=== PATIENT | female | born 1990 | race Caucasian/White ===

== ENCOUNTER 2020-09-27 01:13 | Emergency (ER) | payer OTHER ==
--- OUTSIDE RECORDS SUMMARY | 2020-09-27 01:16 | XMS REPORT | Continuity of Care Document ---
:1990 Author Organization [facility] t Address [address] [place] [address] Dr. Georges [address] [place] [id number] Care Team Providers Name Role Phone Unavailable Unavailable Unavailable Problems This patient has no known problems. Allergies, Adverse Reactions, Alerts This patient has no known allergies or adverse reactions. Medications This patient has no known medications. Procedures This patient has no known procedures. Results This patient has no known results.
[2020-09-27] MEDS ORDERED: HYDROCODONE/APAP 5/325 MG TAB ONE (02:42)
--- NOTE | 2020-09-27 04:18 | EDPHYS ---
Physician Documentation [facility] Name: Madeline Granda Age: 30 yrs Sex: Female : 1990 Arrival Date: 09/27/2020 Time: 01:18 Bed 27 Private MD: ED Physician Alvaro Kerns HPI: 09/27 02:22 This 30 yrs old Female presents to ER via Ambulatory with complaints of Ankle mh7 Injury. 02:22 The patient presents with an injury, pain, that is acute. The complaints affect the mh7 left ankle. Onset: The symptoms/episode began/occurred last night, at 19:30. Context: The problem was sustained Gym, resulted from an unknown cause, The mechanism of injury is unknown. The patient can partially bear weight on the affected extremity. the patient is able to ambulate, with moderate difficulty. Associated signs and symptoms: Pertinent negatives: calf tenderness, fever, nausea, numbness, rash, swelling, tingling, vomiting, warmth, weakness. Modifying factors: The symptoms are alleviated by nothing, the symptoms are aggravated by weight bearing, movement. Severity of symptoms: At their worst the symptoms were moderate, earlier today, in the emergency department the symptoms are unchanged, despite home interventions. 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 - Social history:: Smoking status: Patient reports the use of cigarette tobacco products, smokes one-half pack cigarettes per day, Patient uses alcohol, occasionally. ROS: 02:22 Constitutional: Negative for fever, chills, and weight loss, Eyes: Negative for injury, mh7 pain, redness, and discharge, ENT: Negative for injury, pain, and discharge, Neck: Negative for injury, pain, and swelling, Cardiovascular: Negative for chest pain, palpitations, and edema, Respiratory: Negative for shortness of breath, cough, wheezing, and pleuritic chest pain, Abdomen/GI: Negative for abdominal pain, nausea, vomiting, diarrhea, and constipation, Back: Negative for injury and pain, : Negative for injury, bleeding, discharge, and swelling, Skin: Negative for injury, rash, and discoloration, Neuro: Negative for headache, weakness, numbness, tingling, and seizure, Psych: Negative for depression, anxiety, suicide ideation, homicidal ideation, and hallucinations, Allergy/Immunology: Negative for hives, rash, and allergies, Endocrine: Negative for neck swelling, polydipsia, polyuria, polyphagia, and marked weight changes, Hematologic/Lymphatic: Negative for swollen nodes, abnormal bleeding, and unusual bruising. Exam: 02:22 Constitutional: This is a well developed, well nourished patient who is awake, alert, mh7 and in no acute distress. Head/Face: Normocephalic, atraumatic. Skin: Warm, dry with normal turgor. Normal color with no rashes, no lesions, and no evidence of cellulitis. 02:22 Neuro: Awake and alert, GCS 15, oriented to person, place, time, and situation. Cranial nerves II-XII grossly intact. Motor strength 5/5 in all extremities. Sensory grossly intact. Cerebellar exam normal. Normal gait. Psych: Awake, alert, with orientation to person, place and time. Behavior, mood, and affect are within normal limits. 02:22 Musculoskeletal/extremity: Extremities: noted in the left ankle, left foot: decreased ROM, pain, tenderness, ROM: limited active range of motion due to pain, in the left foot and ankle, limited passive range of motion due to pain, in the left foot and ankle, Circulation is intact in all extremities. Pulses: are normal with no appreciated deficits, Perfusion: the patient is normally perfused throughout, Perfusion: the extremity is normally perfused throughout, Calf tenderness, is absent, Edema, is not appreciated, Sensation intact. Compartment Syndrome exam of affected extremity: is normal. no numbness, no tingling, no sensation deficit, no palor, no weak pulses, Joints: the left ankle displays painful range of motion, tenderness, Weight bearing: can bear weight with assistance only, Tendon exam: specific tendon testing normal through active and passive range of motion Vital Signs: 01:49 BP 124 / 69; Pulse 102; Resp 16 S; Temp 98.2(O); Pulse Ox 96% on R/A; Weight 68.95 kg bb (R); Height 5 ft. 6 in. (167.64 cm) (R); Pain 10/10; 05:13 BP 119 / 72; Pulse 94; Resp 16; Pulse Ox 97% on R/A; jm8 01:49 Body Mass Index 24.53 (68.95 kg, 167.64 cm) bb MDM: 04:15 Differential diagnosis: fracture, sprain, arthritis. Data reviewed: vital signs, nurses [facility] notes, radiologic studies, plain films. Data interpreted: Pulse oximetry: on room air is 96 %. Interpretation: normal. Counseling: I had a detailed discussion with the patient and/or guardian regarding: the historical points, exam findings, and any diagnostic results supporting the discharge/admit diagnosis, radiology results, the need for outpatient follow up, a dermatological surgeon, to return to the emergency department if symptoms worsen or persist or if there are any questions or concerns that arise at home. Response to treatment: the patient's symptoms have markedly improved after treatment. 04:18 Patient medically screened. [facility] 09/27 02:22 Order name: Ankle Left 3 View XRAY [facility] 09/27 02:22 Order name: Foot Left 3 View XRAY [facility] 09/27 04:10 Order name: Crutches [facility] Administered Medications: 02:24 Drug: [place] (HYDROcodone-acetaminophen) 5 mg-325 mg 1 tabs Route: PO; jm8 Disposition: 09/27/20 04:18 Discharged to Home. Impression: Sprain, Left Ankle, Sprain, Left Foot. - Condition is Stable. - Discharge Instructions: Foot Sprain, Crutch Use, [id number], Ankle Sprain, Bcut-ej-Cxct. - Prescriptions for Ibuprofen 600 mg Oral Tablet - take 1 tablet by ORAL route every 8 hours As needed take with food; 15 tablet. Tramadol 50 mg Oral Tablet - take 1 tablet by ORAL route every 8 hours as needed; 12 tablet. - Medication Reconciliation Form, Thank You Letter, Antibiotic Education, Prescription Opioid Use, Work release form form. - Follow up: Private Physician; When: 1 - 2 days; Reason: Worsening of condition, Recheck today's complaints, Continuance of care, Re-evaluation by your physician. Follow up: Sukhjinder Hernandez MD; When: 1 - 2 days; Reason: Worsening of condition, Recheck today's complaints. Follow up: Jeffrey Burger DPM; When: 1 - 2 days; Reason: Worsening of condition, Recheck today's complaints. - Problem is new. - Symptoms have improved. Signatures: Dispatcher [employer] Jaki Rodas, RN RN Alvaro Kerns MD MD 7 Parker Castillo RN RN jm8 Corrections: (The following items were deleted from the chart) 05:03 04:18 09/27/2020 04:18 Discharged to Home. Impression: Sprain, Left Ankle; Sprain, Left jm8 Foot. Condition is Stable. Forms are Medication Reconciliation Form, Thank You Letter, Antibiotic Education, Prescription Opioid Use. Follow up: Private Physician; When: 1 - 2 days; Reason: Worsening of condition, Recheck today's complaints, Continuance of care, Re-evaluation by your physician. Follow up: Sukhjinder Hernandez; When: 1 - 2 days; Reason: Worsening of condition, Recheck today's complaints. Follow up: Jeffrey Burger; When: 1 - 2 days; Reason: Worsening of condition, Recheck today's complaints. Problem is new. Symptoms have improved. mh7
--- NOTE | 2020-09-27 04:18 | ER ---
Nurse's Notes [facility] Name: Madeline Granda Age: 30 yrs Sex: Female : 1990 Arrival Date: 09/27/2020 Time: 01:18 Bed 27 Private MD: Diagnosis: Sprain, Left Ankle;Sprain, Left Foot Presentation: 09/27 01:49 Chief complaint: Patient states: she worked out at the gym [place] and injured her left bb ankle which is now very painful. Coronavirus screen: At this time, the client does not indicate any symptoms associated with coronavirus-19. Ebola Screen: No symptoms or risks identified at this time. Initial Sepsis Screen: Does the patient meet any 2 criteria? No. Patient's initial sepsis screen is negative. Does the patient have a suspected source of infection? No. Patient's initial sepsis screen is negative. Risk Assessment: Do you want to hurt yourself or someone else? Patient reports no desire to harm self or others. Onset of symptoms was September 26, 2020. 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 - Social history:: Smoking status: Patient reports the use of cigarette tobacco products, smokes one-half pack cigarettes per day, Patient uses alcohol, occasionally. Screenin:22 Abuse screen: Denies threats or abuse. Denies injuries from another. Nutritional jm8 screening: No deficits noted. Tuberculosis screening: No symptoms or risk factors identified. Fall Risk None identified. Assessment: 02:26 General: Appears in no apparent distress. Behavior is calm, cooperative, appropriate jm8 for age. Pain: Complains of pain in left ankle Pain currently is 12 out of 10 on a pain scale. Quality of pain is described as sharp, Pain began 8 hours ago Alleviated by medications, Also complains of no other associated symptoms. Neuro: No deficits noted. Level of Consciousness is awake, alert, obeys commands, Oriented to person, place, time. Cardiovascular: No deficits noted. Respiratory: No deficits noted. Airway is patent Trachea midline Respiratory effort is even, unlabored. GI: No deficits noted. : No deficits noted. EENT: No deficits noted. Derm: No deficits noted. Musculoskeletal: Reports pain in right ankle since 5 pm. Pain is 12 out of 10 on a pain scale. Vital Signs: 01:49 BP 124 / 69; Pulse 102; Resp 16 S; Temp 98.2(O); Pulse Ox 96% on R/A; Weight 68.95 kg bb (R); Height 5 ft. 6 in. (167.64 cm) (R); Pain 10/10; 05:13 BP 119 / 72; Pulse 94; Resp 16; Pulse Ox 97% on R/A; jm8 01:49 Body Mass Index 24.53 (68.95 kg, 167.64 cm) ED Course: 01:18 Patient arrived in ED. es 01:52 Triage completed. bb 01:52 Arm band placed on Patient placed in an exam room, on a stretcher, on pulse oximetry. 01:57 Alvaro Kerns MD is Attending Physician. [facility] 02:22 Patient has correct armband on for positive identification. Bed in low position. Call 8 light in reach. Side rails up X 1. 02:28 No provider procedures requiring assistance completed. 8 03:17 Ankle Left 3 View XRAY In Process Unspecified. EDMS 03:18 Foot Left 3 View XRAY In Process Unspecified. EDMS 04:16 Sukhjinder Hernandez MD is Referral Physician. 7 04:16 Jeffrey Burger DPM is Referral Physician. 7 05:13 Patient did not have IV access during this emergency room visit. 8 Administered Medications: 02:24 Drug: [place] (HYDROcodone-acetaminophen) 5 mg-325 mg 1 tabs Route: PO; alf Outcome: 04:18 Discharge ordered by . [facility] 05:00 Discharged to home Ailyn 05:00 Condition: good Ailyn 05:00 Discharge instructions given to patient, Instructed on discharge instructions, follow up and referral plans. medication usage, crutch walking, Demonstrated understanding of instructions, follow-up care, medications, crutch walking. 05:03 Patient left the ED. alf Signatures: Dispatcher [employer] Cheri Zamora Brenda, DC RN bb Alvaro Kerns MD MD mh7 Parker Castillo RN RN jm8
[2020-09-27 05:09] VITALS: BP 124/69; TEMP 98.2; O2SAT 96
--- NOTE | 2020-09-27 08:47 | RAD REPORT ---
EXAM DESCRIPTION: RAD - Ankle Left 3 View - 09/27/2020 3:17 am CLINICAL HISTORY: trauma Pain and swelling COMPARISON: Foot Left 3 View dated 09/27/2020 FINDINGS: Soft tissue swelling is seen about the foot and ankle. There is no evidence acute fracture or dislocation. No aggressive marrow lesion.
--- NOTE | 2020-09-27 13:44 | RAD REPORT ---
EXAM DESCRIPTION: RAD - Foot Left 3 View - 09/27/2020 3:18 am CLINICAL HISTORY: Trauma Pain and swelling COMPARISON: Foot Left 3 View dated 09/27/2020 FINDINGS: Soft tissue swelling is seen about the foot and ankle. There is no evidence acute fracture or dislocation. No aggressive marrow lesion.
== END 2020-09-27 05:03 | disposition home or self-care (01) ==
LOC: ER 01:13
DX: S93.402A Sprain of unspecified ligament of left ankle, initial encounter (principal); S93.602A Unspecified sprain of left foot, initial encounter; F17.210 Nicotine dependence, cigarettes, uncomplicated; X58.XXXA Exposure to other specified factors, initial encounter
CPT/HCPCS: 99284

== ENCOUNTER 2022-01-16 12:53 | Emergency (ER) | payer OTHER ==
--- OUTSIDE RECORDS SUMMARY | 2022-01-16 12:56 | XMS REPORT | Continuity of Care Document ---
:[address] [facility] [place] [place] t Address [address] [place] [address] Care Team Providers Name Role Phone PCP, PATIENT DOES NOT HAVE A Primary Care Physician ANUPAM Parry Attending Clinician Unavailable Anupam Mckeon Attending Clinician Payers Payer Name Policy Type Policy Number Effective Date Expiration Date S mary jane CIG[employer] II [id number] 2020 00:00:00 Problems Condition Condition Condition Status Onset Resolution Last Treating Co mments Source Name Details Category Date Date Treatment Clinician Date No known No known Disease Unive rs active active ity of problems problems [facility] Allergies, Adverse Reactions, Alerts Allergy Allergy Status Severity Reaction(s) Onset Inactive Treating Comm ents Source Name Type Date Date Clinician NO KNOWN Drug Active Univers ALLERGIE Class ity of S [facility] Social History Social Habit Start Date Stop Date Quantity Comments Source History of tobacco Cigarette Smoker University of use [facility] History SDOH University o f Alcohol Comment [place] [facility] Exposure to Not sure University of SARS-CoV-2 (event) [facility] Alcohol intake 2021-05-12 2021-05-12 Current drinker Unive rsity of 00:00:00 00:00:00 of alcohol [facility] (finding) Branch Cigarettes smoked 2020-07-09 2020-07-09 Univers ity of current (pack per 00:00:00 00:00:00 [place] ) - Reported Branch Cigarette 2020-07-09 2020-07-09 University of pack-years 00:00:00 00:00:00 [facility] Tobacco use and 2020-07-09 2020-07-09 Never used Universit y of exposure 00:00:00 00:00:00 [place] [facility] History SDOH 2020-07-09 2020-07-09 3 University o f Alcohol Frequency 00:00:00 00:00:00 [place] [facility] History SDOH 2020-07-09 2020-07-09 2 University o f Alcohol Std Drinks 00:00:00 00:00:00 [place] [facility] History SDOH 2020-07-09 2020-07-09 99 University o f Alcohol Binge 00:00:00 00:00:00 [place] [facility] Sex Ass[birth year] At [birth year] Universit y of 00:00:00 00:00:00 [place] [facility] Smoking Status Start Date Stop Date Source Current every day smoker 2020-07-09 00:00:00 Uni [facility] Medications Ordered Filled Start Stop Current Ordering Indication Dosage Frequency Signature Comments Components Source Medication Medication Date Date Medication? Clinician (SIG) Name Name cephALEXin 2020-05- No [id number] 500mg Take 1 Univers (KEFLEX) 07-13 capsule by ity of 500 mg 00:00: 05:59 mouth 3 [place] capsule 00 :00 (three) Medical times Branch daily for 7 days. imiquimod 5 Yes [id number] 1{packe Apply 1 Univers % cream 2-10 t} Each to ity of 00:00: [facility](s) [place] [id number] every Medical Wednesday, Branch Wednesday and Wednesday. Vital Signs Vital Name Observation Time Observation Value Comments Source Systolic blood 2021-05-12 20:46:00 118 mm[Hg[facility] pressure Medical Branch Diastolic blood 2021-05-12 20:46:00 74 mm[Hg] [facility] Heart rate 2021-05-12 20:46:00 85 /min [facility] Body height 2021-05-12 20:46:00 167.6 cm [facility] Body weight 2021-05-12 20:46:00 72.122 kg [facility] BMI 2021-05-12 20:46:00 25.66 kg/m2 [facility] Oxygen saturation 2021-05-12 20:46:00 98 /min [facility] in Arterial blood Medical Br anch by Pulse oximetry Procedures Procedure Date / Time Performed Performing Clinician Sourc e POCT URINALYSIS 2021-05-12 00:00:00 [facility] o f [facility] Encounters Start End Encounter Admission Attending Care Care Encounter Source Date/Time Date/Time Type Type Clinicians Facility Department ID 2021-05-12 2021-05-12 [id number] Univers 15:00:00 15:32:14 ANUPAM itzainab [facility] 2021-05-12 2021-05-12 Office [facility] [id number] Univers 14:40:41 15:32:14 Visit [facility] [id number] y [facility] [id number] Luis as LEXIS?BLEA [id number] Tn dical [address] MEDICAL OFFICE BUILDING Results Test Description Test Time Test Comments Results Result Comments Source POCT URINALYSIS W SPECIFIC GRAVITY 2021-05-12 21:00:00 Test Item Value Reference Range Interpretation Comme nts POCT U SP GRAV (test code = 3255) 1.020 mg/dl 1.005-1.025 POCT PH U (test code = 3254) + 5-8 POCT U LEUK EST (test code = 3263) + Negative - Negative POCT U NIT (test code = 3262) neg Negative - Negative POCT U PROT (test code = 3259) neg Negative - Negative POCT U GLU (test code = 3256) neg Negative - Negative POCT U KETONE (test code = 3258) neg Negative - Negative POCT U UROBILI (test code = 3260) neg 0.2-1 POCT U BILI (test code = 3261) neg Negative - Negative POCT U BLD (test code = 3257) Negative - Negative POCT U COLOR (test code = 3266) yellow POCT U APPEAR (test code = 3267) hazy [facility]
[2022-01-16] MEDS ORDERED: ACETAMINOPHEN 500 MG TAB ONE (14:32)
--- NOTE | 2022-01-16 15:07 | RAD REPORT ---
EXAM DESCRIPTION: RAD - Elbow Right 3 View - 01/16/2022 2:16 pm CLINICAL HISTORY: Elbow pain FINDINGS: No fracture or dislocation is seen. No bone or joint abnormality is displayed
--- NOTE | 2022-01-16 15:08 | RAD REPORT ---
EXAM DESCRIPTION: RAD - Hand Right 3 View - 01/16/2022 2:16 pm CLINICAL HISTORY: Right hand pain status post injury FINDINGS: No fracture or dislocation is seen.
--- NOTE | 2022-01-16 15:10 | RAD REPORT ---
EXAM DESCRIPTION: RAD - Forearm Right - 01/16/2022 2:16 pm CLINICAL HISTORY: Right arm pain FINDINGS: No fracture is seen.
--- NOTE | 2022-01-16 15:48 | EDPHYS ---
Physician Documentation [facility] Name: Madeline Granda Age: 31 yrs Sex: Female : 1990 Arrival Date: 01/16/2022 Time: 12:54 Bed 11 Private MD: ED Physician Ra Guillermo HPI: 01/16 14:00 This 31 yrs old Female presents to ER via Ambulatory with complaints of Wrist Injury. cp 14:00 The patient or guardian complains of injury, pain, that is acute, swelling, tenderness. cp The complaints affect the right antecubital area, right hand and right forearm. Context: resulted from punching wall yesterday. 14:00 Onset: The symptoms/episode began/occurred yesterday. Treatment prior to arrival cp includes: no previous treatment. Modifying factors: the symptoms are aggravated by movement. Associated signs and symptoms: The patient has no apparent associated signs or symptoms. 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 - Social history:: Patient/guardian denies using tobacco products, Smoking status: Patient/guardian denies using. ROS: 14:05 MS/extremity: Positive for pain, swelling, tenderness, of the right hand and right cp wrist and right forearm and right elbow, dorsal side abrasions of right hand. 14:05 Constitutional: Negative for body aches, chills, fever, poor PO intake. cp 14:05 Neck: Negative for pain with movement, pain at rest, stiffness. cp 14:05 Cardiovascular: Negative for chest pain, edema, palpitations. 14:05 Respiratory: Negative for cough, shortness of breath, wheezing. 14:05 Abdomen/GI: Negative for abdominal pain, nausea, vomiting, and diarrhea. 14:05 Back: Negative for pain at rest, pain with movement. 14:05 Neuro: Negative for altered mental status, headache, numbness, tingling, weakness. 14:05 All other systems are negative. Exam: 14:10 Constitutional: The patient appears in no acute distress, alert, awake, non-toxic, well cp developed, well nourished. 14:10 Head/Face: Normocephalic, atraumatic. cp 14:10 Neck: ROM/movement: is normal, is supple, without pain, no range of motions limitations. 14:10 Chest/axilla: Inspection: normal. 14:10 Cardiovascular: Rate: normal, Pulses: Pulses are 2+ in right radial artery. 14:10 Respiratory: the patient does not display signs of respiratory distress, Respirations: normal, no use of accessory muscles, no retractions, labored breathing, is not present. 14:10 Musculoskeletal/extremity: Extremities: grossly normal except: noted in the right forearm and right hand and right elbow: pain, tenderness, mild swelling noted dorsal side of right hand, ROM: full active range of motion, in the right hand and right wrist and right elbow, the right arm Sensation intact. Vital Signs: 13:30 BP 130 / 81; Pulse 63; Resp 16; Temp 98.0(TE); Pulse Ox 100% on R/A; Weight 73.94 kg bm7 (R); Height 5 ft. 6 in. (167.64 cm); Pain 10/10; 16:00 BP 131 / 78; Pulse 68; Resp 18; Pulse Ox 99% ; Pain 5/10; kb3 13:30 Body Mass Index 26.31 (73.94 kg, 167.64 cm) bm7 Procedures: 16:00 Splinting: Splint applied to right hand and right forearm and right elbow using cp Orthoglass splint, applied by tech. Examined by me, post splint application: neurovascular intact, Patient tolerated well. MDM: 15:17 Patient medically screened. pati 15:47 Data reviewed: vital signs, nurses notes, radiologic studies, plain films. cp 15:47 Differential diagnosis: dislocation, closed fracture, contusion, abrasion. Test cp interpretation: by ED physician or midlevel provider: plain radiologic studies. Counseling: I had a detailed discussion with the patient and/or guardian regarding: the historical points, exam findings, and any diagnostic results supporting the discharge/admit diagnosis, radiology results, the need for outpatient follow up, a orthopedic surgeon, to return to the emergency department if symptoms worsen or persist or if there are any questions or concerns that arise at home. Response to treatment: the patient's symptoms have markedly improved after treatment, and as a result, I will discharge patient. 01/16 13:40 Order name: XRAY Hand RIGHT 3 View; Complete Time: 15:17 cp 01/16 15:17 Interpretation: Report reviewed. cp 01/16 13:40 Order name: XRAY Forearm RIGHT; Complete Time: 15:17 cp 01/16 15:21 Interpretation: Reviewed. cp 01/16 13:40 Order name: XRAY Elbow RIGHT 3 view; Complete Time: 15:17 cp 01/16 15:21 Interpretation: Report reviewed. cp 01/16 15:24 Order name: Sling; Complete Time: 15:42 cp 01/16 15:24 Order name: Sugar Tong Forearm Splint; Complete Time: 15:42 cp Administered Medications: 14:24 Drug: Tylenol 1000 mg Route: PO; bm7 16:12 Follow up: Response: No adverse reaction; Pain is decreased kb3 Disposition Summary: 01/16/22 15:47 Discharge Ordered Location: Home cp Problem: new cp Symptoms: have improved cp Condition: Stable cp Diagnosis - Contusion of right hand cp - Pain in right forearm cp - Pain in right elbow cp Followup: cp - With: Sukhjinder Hernandez MD - When: 2 - 3 days - Reason: Worsening of condition Discharge Instructions: - Discharge Summary Sheet cp - Hand Contusion cp - Hand Pain cp - Elbow Sprain cp Forms: - Medication Reconciliation Form cp - Thank You Letter cp - Antibiotic Education cp - Prescription Opioid Use cp Prescriptions: - Diclofenac Sodium 75 mg Oral Tablet Sustained Release - take 1 tablet by ORAL route 2 times per day; 30 tablet; Refills: 0, Product cp Selection Permitted Signatures: Dispatcher [employer] Ra Álvarez MD MD cha Page, Corey, PA PA cp Yadira Teran, RN RN bm7 Yuli Wallace RN kb3
--- NOTE | 2022-01-16 15:48 | ER ---
Nurse's Notes [facility] Name: Madeline Granda Age: 31 yrs Sex: Female : 1990 Arrival Date: 01/16/2022 Time: 12:54 Bed 11 Private MD: Diagnosis: Contusion of right hand;Pain in right forearm;Pain in right elbow Presentation: 01/16 13:34 Chief complaint: Patient states: I punched a wall two days ago and I am pretty sure i bm7 broke my right hand. Coronavirus screen: At this time, the client does not indicate any symptoms associated with coronavirus-19. Ebola Screen: No symptoms or risks identified at this time. Initial Sepsis Screen: Does the patient meet any 2 criteria? No. Patient's initial sepsis screen is negative. Does the patient have a suspected source of infection? No. Patient's initial sepsis screen is negative. Risk Assessment: Do you want to hurt yourself or someone else? Patient reports no desire to harm self or others. Onset of symptoms was January 14, 2022. 13:34 Method Of Arrival: Ambulatory 7 13:34 Acuity: JONG 4 bm7 Triage Assessment: 13:35 General: Appears in no apparent distress. uncomfortable, Behavior is calm, cooperative, bm7 appropriate for age. Pain: Complains of pain in right hand. EENT: No deficits noted. No signs and/or symptoms were reported regarding the EENT system. Neuro: No deficits noted. Cardiovascular: No deficits noted. Reports. Respiratory: No deficits noted. GI: No deficits noted. No signs and/or symptoms were reported involving the gastrointestinal system. : No deficits noted. No signs and/or symptoms were reported regarding the genitourinary system. Derm: Skin is intact, Skin is pink, warm \T\ dry. Bruising that is yellow, on right hand. Musculoskeletal: Reports weakness in right hand pain in right hand. Injury Description: Bruise sustained to right hand. 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 - Social history:: Patient/guardian denies using tobacco products, Smoking status: Patient/guardian denies using. Screenin:08 Abuse screen: Denies threats or abuse. Nutritional screening: No deficits noted. bm7 Tuberculosis screening: No symptoms or risk factors identified. Fall Risk None identified. Assessment: 15:08 Reassessment: Patient and/or family updated on plan of care and expected duration. Pain bm7 level reassessed. Patient is alert, oriented x 3, equal unlabored respirations, skin warm/dry/pink. 15:17 General: Received care of pt from [facility] without distress. Pt is AAO x4. kb3 States right hand and wrist pain after punching a wall 2 days ago. Dorsal aspect of right hand is bruised with 2 small healing abrasions. Sensation and movement are intact in all fingers. Pt states no needs at this time. Awaiting provider for disposition. Vital Signs: 13:30 BP 130 / 81; Pulse 63; Resp 16; Temp 98.0(TE); Pulse Ox 100% on R/A; Weight 73.94 kg bm7 (R); Height 5 ft. 6 in. (167.64 cm); Pain 10/10; 16:00 BP 131 / 78; Pulse 68; Resp 18; Pulse Ox 99% ; Pain 5/10; kb3 13:30 Body Mass Index 26.31 (73.94 kg, 167.64 cm) bm7 ED Course: 12:54 Patient arrived in ED. as 13:13 Ra Bonilla PA is PHCP. cp 13:13 Ra Guillermo MD is Attending Physician. cp 13:35 Triage completed. bm7 13:35 Arm band placed on. bm7 14:18 XRAY Hand RIGHT 3 View In Process Unspecified. EDMS 14:18 XRAY Forearm RIGHT In Process Unspecified. EDMS 14:18 XRAY Elbow RIGHT 3 view In Process Unspecified. EDMS 15:08 No apparent distress. Resting quietly. bm7 15:08 Patient has correct armband on for positive identification. bm7 15:17 Yuli Wallace, RN is Primary Nurse. kb3 15:42 Orthoglass splint: Sugar tong splint applied on right arm. Sling applied to right arm. em1 15:45 Sukhjinder Hernandez MD is Referral Physician. cp 16:12 No provider procedures requiring assistance completed. Patient did not have IV access kb3 during this emergency room visit. Administered Medications: 14:24 Drug: Tylenol 1000 mg Route: PO; bm7 16:12 Follow up: Response: No adverse reaction; Pain is decreased kb3 Medication: 15:08 VIS not applicable for this client. bm7 Outcome: 15:47 Discharge ordered by . cp 16:12 Discharged to home ambulatory. kb3 16:12 Condition: stable 16:12 Discharge instructions given to patient, Instructed on discharge instructions, follow up and referral plans. medication usage, Care of splint Demonstrated understanding of instructions, follow-up care, medications, splint care, Prescriptions given X 1. 16:14 Patient left the ED. kb3 Signatures: Dispatcher [employer] EDMS Paula Rangel Eric em1 Ra Bonilla PA PA cp McCarthy, Brittany, RN RN bm7 Yuli Wallace RN RN kb3 Corrections: (The following items were deleted from the chart) 13:34 13:30 Pulse 163bpm; Resp 16bpm; Pulse Ox 100% RA; Temp 98.0F Temporal; 73.94 kg bm7 Reported; Height 5 ft. 6 in.; BMI: 26.3; Pain 10/10; bm7
[2022-01-16 16:18] VITALS: TEMP 98
[2022-01-16 16:21] VITALS: BP 131/78; O2SAT 99
== END 2022-01-16 16:14 | disposition home or self-care (01) ==
LOC: ER 12:53
PROC: 2W3CX1Z Immobilization of Right Lower Arm using Splint (ICD-10-PCS; principal; 2022-01-16)
DX: S60.221A Contusion of right hand, initial encounter (principal); M79.631 Pain in right forearm; M25.521 Pain in right elbow
CPT/HCPCS: 99284

== ENCOUNTER 2023-11-12 22:56 | Emergency (ER) | payer OTHER ==
--- OUTSIDE RECORDS SUMMARY | 2023-11-12 22:59 | XMS REPORT | Continuity of Care Document ---
Author Name Unknown Address [address] [facility] [address] [place] [address] [facility] Address [address] [facility] [place] [address] Care Team Providers Care First Beater Name Role Phone PCP, PATIENT DOES NOT HAVE A Primary Care Physic betty Unavailable MILAD RICH Attending Clinician Unavailable Milad Rich MD Attending Clinician ENEDINA BARRIGA Attending Clinician ENEDINA Vyas Attending Clinician NANDA Parry Attending Clinician Unavailable Nanda Mckeon Attending Clinician MILAD RICH Admitting Clinician Unavailable Payers Payer Name Policy Type Policy Number Effective Date Expirati on Date Source GAL AZUL [id number] 2021 00:00:00 Problems Condition Name Condition Details Condition Category Status Onset Date Resolution Date Last Treatment Date Treating Clinician Comments Source No known active problems No known active problems Disease [facility] Allergies, Adverse Reactions, Alerts Allergy Name Allergy Type Status Severity Reaction(s) Onset Date Inactive Date Treating Clinician Comments Source NO KNOWN ALLERGIE S Drug Class Active [facility] Social History Social Habit Start Date Stop Date Quantity Comments Source History of tobacco use Cigarette Smoker [facility] History SDOH Alcohol Comment [facility]a o f [facility] Alcohol intake 2022-04-27 00:00:00 2022-04-27 00:00:00 Current drinker of alcohol (finding) [facility] Cigarettes smoked current (pack per day) - Reported 2022-04-22 00:00:00 2022-04-22 00:00:00 [facility] Cigarette pack-years 2022-04-22 00:00:00 2022-04-22 00:00:00 [facility] Tobacco use and exposure 2022-04-22 00:00:00 2022-04-22 00:00:00 Smokeless tobacco non-user [facility] Exposure to SARS-CoV-2 (event) 2022-04-05 00:00:00 2022-04-15 06:55:00 Not sure [facility] History SDOH Alcohol Frequency 2020-07-09 00:00:00 2020-07-09 00:00:00 3 [facility] History SDOH Alcohol Std Drinks 2020-07-09 00:00:00 2020-07-09 00:00:00 2 [facility] History SDOH Alcohol Binge 2020-07-09 00:00:00 2020-07-09 00:00:00 99 [facility] Sex Assigned At 1990 00:00:00 1990 00:00:00 [facility] Smoking Status Start Date Stop Date Source Smokes tobacco daily 2022-04-22 00:00:00 [facility] Medications Ordered Medication Name Filled Medication Name Start Date Stop Date Current Medication? Ordering Clinician Indication Dosage Frequency Signature (SIG) Comments Components Source ketorolac (TORADOL) injection 30 mg 12-02 11:00: 00 12-02 10:22 :00 No 30mg 30 mg, Slow IV Push, ONCE, 1 dose, On Wed12/02/22 at 0600, JULISA [facility] iopamidol (ISOVUE 370-500 mL) injection 100 mL 12-02 10:30: 00 12-02 10:30 :00 No [id number] 100mL 100 mL, Intravenou s, ONCE, 1 dose, On Wed12/02/22 at 0530, Routine [facility] NaCl 0.9% (NS) bolus infusion 1,000 mL 12-02 09:45: 00 12-02 11:08 :00 No 1000mL at 150 mL/hr, 1,000 mL, IV Infusion, ONCE, 1 dose, On Wed12/02/22 at 0445, STAT [facility] ibuprofen 600 mg tablet - 00:00: 00 Yes [id number] 600mg Take 1 tablet by mouth every 8 (eight) hours as needed for Pain (scale 4-6). [facility] ketorolac (TORADOL) injection 30 mg 2021-05 14:30: 00 04-15 13:43 :00 No 30mg 30 mg, Slow IV Push, ONCE, 1 dose, On Wed04/15/22 at 0830, JULISA [facility] iopamidol (ISOVUE 370-500 mL) injection 80 mL 2021-05 14:22: 00 04-15 14:30 :00 No [id number] 80mL 80 mL, Intravenou s, ONCE, 1 dose, On Wed04/15/22 at 0830, Routine [facility] famotidine (PEPCID (PF)) injection 20 mg 2021-05 13:30: 00 04-15 13:26 :00 No 20mg 20 mg, Slow IV Push, ONCE, 1 dose, On Wed04/15/22 at 0730, JULISA [facility] naproxen 500 mg tablet 2021-05 00:00: 00 04-23 05:59 :00 No [id number] 500mg Take 1 tablet by mouth in the morning and 1 tablet in the evening. Take with meals. Do all this for 7 days. [facility] acetaminoph en-codeine 300-30 mg tablet 2021-05 00:00: 00 04-23 05:59 :00 No [id number] 1{tbl} Take 1 tablet by mouth every 6 (six) hours as needed for Pain (scale 7-10) for up to 7 days. Indication s: acute pain [facility] cephALEXin (KEFLEX) 500 mg capsule 2020-05- 00:00: 00 05-20 05:59 :00 No [id number] 500mg Take 1 capsule by mouth 3 (three) times daily for 7 days. [facility] imiquimod 5 % cream 2- 00:00: 00 Yes [id number] 1{packe t} Apply 1 Each to area(s) every Wednesday, Wednesday and Wednesday. [facility] Vital Signs Vital Name Observation Time Observation Value Carola hinton Systolic blood pressure 2022-12-02 11:01:00 115 mm[Hg] [facility] Diastolic blood pressure 2022-12-02 11:01:00 78 mm[Hg] [facility] Heart rate 2022-12-02 11:01:00 93 /min [facility] Body temperature 2022-12-02 11:01:00 36.78 Telma [facility] Respiratory rate 2022-12-02 11:01:00 22 /min [facility] Oxygen saturation in Arterial blood by Pulse oximetry 2022-12-02 11:01:00 99 /min [facility] Body height 2022-12-02 09:15:36 167.6 cm [facility] Body weight 2022-12-02 09:15:36 68.04 kg [facility] BMI 2022-12-02 09:15:36 24.21 kg/m2 [facility] Systolic blood pressure 2022-04-22 17:09:00 131 mm[Hg] [facility] Diastolic blood pressure 2022-04-22 17:09:00 85 mm[Hg] [facility] Heart rate 2022-04-22 17:07:00 75 /min [facility] Body temperature 2022-04-22 17:07:00 36.83 Telma [facility] Respiratory rate 2022-04-22 17:07:00 18 /min [facility] Body height 2022-04-22 17:07:00 167.6 cm [facility] Body weight 2022-04-22 17:07:00 76.204 kg [facility] BMI 2022-04-22 17:07:00 27.12 kg/m2 [facility] Systolic blood pressure 2022-04-15 13:01:00 129 mm[Hg] [facility] Diastolic blood pressure 2022-04-15 13:01:00 86 mm[Hg] [facility] Heart rate 2022-04-15 13:01:00 100 /min [facility] Body temperature 2022-04-15 13:01:00 35.94 Telma [facility] Respiratory rate 2022-04-15 13:01:00 18 /min [facility] Body weight 2022-04-15 13:01:00 72.122 kg [facility] BMI 2022-04-15 13:01:00 25.66 kg/m2 [facility] Oxygen saturation in Arterial blood by Pulse oximetry 2022-04-15 13:01:00 99 /min [facility] Systolic blood pressure 2021-05-12 20:46:00 118 mm[Hg] [facility] Diastolic blood pressure 2021-05-12 20:46:00 74 mm[Hg] [facility] Heart rate 2021-05-12 20:46:00 85 /min [facility] Body height 2021-05-12 20:46:00 167.6 cm [facility] Body weight 2021-05-12 20:46:00 72.122 kg [facility] BMI 2021-05-12 20:46:00 25.66 kg/m2 [facility] Oxygen saturation in Arterial blood by Pulse oximetry 2021-05-12 20:46:00 98 /min [facility] Procedures Procedure Date / Time Performed Performing Clinician Source URINALYSIS 2022-12-02 10:26:00 [facility]ad [facility] TRAUMA THORAX W CONTRAST 2022-12-02 09:35:47 Milad Rich [facility] CT TRAUMA ABDOMEN PELVIS W CONTRAST 2022-12-02 09:35:47 Milad Rich [facility] CT TRAUMA CERVICAL SPINE WO CONTRAST 2022-12-02 09:35:24 Milad Rich [facility] CT TRAUMA THORACIC SPINE WO CONTRAST 2022-12-02 09:35:24 Milad Rich [facility] CT TRAUMA LUMBAR SPINE WO CONTRAST 2022-12-02 09:35:24 Milad Rich [facility] LIPASE 2022-12-02 09:18:00 Milad [facility] TEST, SERUM 2022-12-02 09:18:00 Milad Rich [facility] COMP. METABOLIC PANEL ([id number]) 2022-12-02 09:18:00 Milad Rich [facility] CBC WITH DIFF 2022-12-02 [facility]22-12-02 09:18:00 Alisa Rich [facility] ACTIVATED PARTIAL THRMPLAS GAETANO 2022-12-02 09:18:00 Milad Rich [facility] HB ABO GROUPING 2022-12-02 09:18:00 Milad Rich [facility] EKG-12 LEAD 2022-04-15 16:20:37 Milad Rich [facility] TROPONIN I 2022-04-15 15:44:00 Milad [facility] CT CHEST PULMONARY ANGIOGRAM 2022-04-15 14:24:00 Milad Rich [facility] URINALYSIS 2022-04-15 13:20:00 Milad Rich [facility] XR CHEST 1 VW 2022-04-15 13:19:41 Milad Rich [facility] LIPASE 2022-04-15 13:12:00 Milad Rich [facility] TROPONIN I 2022-04-15 13:12:00 Milad [facility] COMP. METABOLIC PANEL ([id number]) 2022-04-15 13:12:00 Milad Rich [facility] CBC WITH DIFF 2022-04-15 13:12:00 Milad Rich [facility] PROTHROMBIN TIME / INR 2022-04-15 13:12:00 Alisa Rich [facility] D-DIMER 2022-04-15 13:12:00 Milad [facility] ACTIVATED PARTIAL THRMPLAS GAETANO 2022-04-15 13:12:00 Milad Rich [facility] POCT TEST 2022-04-15 13:12:00 Milad Rich [facility] CONSENT/REFUSAL FOR DIAGNOSIS AND TREATMENT 2022-04-15 12:58:00 Doctor Unassigned, [place] [facility] POCT URINALYSIS 2021-05-12 00:00:00 Nanda Brizuela [facility] Encounters Start Date/Time End Date/Time Encounter Type Admission Type Attending [facility] Care Department Encounter ID Source 2023-03-22 08:49:00 2023-03-22 08:49:00 Outpatient SFA SFA [id number] Gopal Rodriguez Raoul 2022-12-02 04:14:00 2022-12-02 06:11:[address] [facility] ERT [id number] [facility] 2022-12-02 04:14:00 2022-12-02 06:11:00 Emergency Milad Rich [facility] [id number] [id number] [id number] [facility] 2022-04-22 11:15:00 2022-04-22 11:15:00 Office Visit Enedina Barriga [facility] [id number] [id number] [id number] [facility] 2022-04-22 11:15:00 2022-04-22 11:14:45 Outpatient R ENEDINA BARRIGA [facility] [id number] [facility] 2022-04-15 07:05:00 2022-04-15 10:36:[address] [facility] ERT [id number] [facility] 2022-04-15 07:05:00 2022-04-15 10:36:00 Emergency Milad Rich [facility] [id number] [id number] [id number] [id number] [facility] 2022-04-15 00:00:00 2022-04-15 00:00:00 Telephone Enedina Barriga [facility] [id number] [id number] [id number] [id number] [facility] 2021-05-12 15:00:00 2021-05-12 15:32:14 Outpatient R [facility] [id number] [facility] 2021-05-12 14:40:41 2021-05-12 15:32:14 [facility] [id number] [id number] [id number] [id number] [facility] Results Test Description Test Time Test Comments Results Result Co mments Source [facility] [id number] 13:52:23* Test Item Value Reference Range Interpretation Comments TROPONIN I (test code = 2692090068) 0.006 ng/mL See_Comment [Automated message] The system which generated this result transmitted reference range: <=0.034. The reference range was not used to interpret this result as normal/abnormal. VAL (test code = VAL) Reference (Normal) Range (defined by the 99th percentile reference limit): <= 0.034 ng/mL Note: Cardiac troponin begins to rise 3-4 hours after the onset of ischemia. Repeat in 4-6 hours if the sample was drawn within 3-4 hours of the onset of the symptom and found normal. Diagnosis of myocardial injury is made with acute changes in cTn concentrations with at least one serial sample above the 99th percentile upper reference limit (URL), taken together with the patient's clinical presentation. Biotin has been reported to cause a negative bias, interpret results relative to patient's use of biotin. Lab Interpretation (test code = 87100-6) Normal [facility][id number] 13:44:03* Test Item Value Reference Range Interpretation Comments D-DIMER (test code = 0655705633) See_Comment [Automated message] The system which generated this result transmitted reference range: <0.41 ?g/mL (FEU). The reference range was not used to interpret this result as normal/abnormal. VAL (test code = VAL) This test may be used in conjunction with a clinical pretest probability (PTP) assessment model to exclude venous thromboembolism (VTE) in patients suspected of deep venous thrombosis (DVT) and pulmonary embolism (PE) A D-Dimer value less than 0.50 ?g/ml (FEU) has a negative predicative value of 96 to 100% (95% CI)and 97 to 100% (95% CI) as an aid in the diagnosis of deep vein thrombosis (DVT) and pulmonary embolism when there is low or moderate pretest probability of PE or DVT. D-Dimer values are expressed in initial fibrinogen equivalent units (FEU)" The assay results should be used with other information, including the clinical context, in forming a diagnosis. Lab Interpretation (test code = 56684-1) Normal [facility] ([id number])2022-04-15 13:41:22* Test Item Value Reference Range Interpretation Comme nts NA (test code = 9293266281) 142 mmol/L 135-145 K (test code = 7373634444) 4.5 mmol/L 3.5-5.0 CL (test code = 1566141222) 109 mmol/L 98-108 H CO2 TOTAL (test code = 4769535987) 23 mmol/L 23-31 AGAP (test code = 3134716386) 2-16 BUN (test code = 7398181456) 8 mg/dL 7-23 GLUCOSE (test code = 5620407226) 96 mg/dL 70-110 CREATININE (test code = 6064675364) 0.69 mg/dL 0.50-1.04 TOTAL BILI (test code = 5722133726) 0.6 mg/dL 0.1-1.1 CALCIUM (test code = 7601571802) 8.9 mg/dL 8.6-10.6 T PROTEIN (test code = 1521705540) 8.1 g/dL 6.3-8.2 ALBUMIN (test code = 8767988193) 4.7 g/dL 3.5-5.0 ALK PHOS (test code = 6634849728) 52 U/L 34-122 ALTv (test code = 1742-6) 22 U/L 5-35 AST(SGOT) (test code = 3608666103) 35 U/L 13-40 eGFR (test code = 1259272770) mL/min/1.73m2 VAL (test code = VAL) Association of Glomerular Filtration Rate (GFR) and Staging of Kidney Disease* + --+ --+ ------+| GFR (mL/min/1.73 m2) ?| With Kidney Damage ?| ?Without Kidney Damage+ --------+ --------+ +| ?>90 ?| ?Stage one ?| ? Normal ?+ ---+ ---+ -------+| ?60-89 ?| ?Stage two ?| ? Decreased GFR ? + --+ --+ ------+| ?30-59 ?| ?Stage three ?| ? Stage three ? + --+ --+ ------+| ?15-29 ?| ?Stage four ? | ? Stage four ?+ ---+ ---+ -------+| ?<15 (or dialysis) ? ?| ?Stage five ? | ? Stage five ?+ ---+ ---+ -------+ *Each stage assumes the associated GFR level has been in effect for at least three months. ?Stages 1 to 5, with or without kidney disease, indicate chronic kidney disease. Notes: Determination of stages one and two (with eGFR >59mL/min/1.73 m2) requires estimation of kidney damage for at least three months as defined by structural or functional abnormalities of the kidney, manifested by either:Pathological abnormalities or Markers of kidney damage (including abnormalities in the composition of the blood or urine or abnormalities in imaging tests). Lab Interpretation (test code = 29805-4) Abnormal [facility], [id number] 13:40:41* Test Item Value Reference Range Interpretation Comme nts LIPASE (test code = 1345020935) 173 U/L 0-220 Lab Interpretation (test cod e = 13864-3) Normal [facility]inaPTT2022-[facility]-16 13:37:19* Test Item Value Reference Range Interpretation Comme [facility] APTT Patient (test code = 3173-2) See_Comment [Automated message] The system which generated this result transmitted reference range: 23 - 38 Seconds. The reference range was not used to interpret this result as normal/abnormal. VAL (test code = VAL) The [facility] patient population mean normal value for aPTT is 30 seconds. Lab Interpretation (test code = 09858-8) Normal [facility] / [id number] 13:35:24* Test Item Value Reference Range Interpretation Comme [facility] PROTIME PATIENT (test code = 5964-2) See_Comment [Automated [employer]] The system which generated this result transmitted reference range: 12.0 - 14.7 Seconds. The reference range was not used to interpret this result as normal/abnormal. INR (test code = 6301-6) Normal INR <1.1; Warfarin Therapeutic range 2.0 to 3.0 or 2.5 to 3.5, depending upon the indications. Lab Interpretation (test code = 23893-1) Normal [facility] [id number] 13:19:39* Test Item Value Reference Range Interpretation Comme [facility] WBC (test code = 6690-2) See_Comment [Automated [employer]] The system which generated this result transmitted reference range: 4.30 - 11.10 10*3/?L. The reference range was not used to interpret this result as normal/abnormal. RBC (test code = 789-8) See_Comment [Automated [employer]] The system which generated this result transmitted reference range: 3.93 - 5.25 10*6/?L. The reference range was not used to interpret this result as normal/abnormal. HGB (test code = 718-7) 16.5 g/dL 11.6-15.0 H HCT (test code = 4544-3) 46.4 % 35.7-45.2 H MCV (test code = 787-2) 92.6 fL 80.6-95.5 MCH (test code = 785-6) 32.9 pg 25.9-32.8 H MCHC (test code = 786-4) 35.6 g/dL 31.6-35.1 H RDW-SD (test code = 46132-6) 47.9 fL 39.0-49.9 RDW-CV (test code = 788-0) 14.2 % 12.0-15.5 PLT (test code = 777-3) See_Comment [Automated messa ge] The system which generated this result transmitted reference range: 166 - 358 10*3/?L. The reference range was not used to interpret this result as normal/abnormal. MPV (test code = 82891-8) 10.7 fL 9.5-12.9 NRBC/100 WBC (test code = 1158513721) See_Comment [Automated [employer] ssage] The system which generated this result transmitted reference range: 0.0 - 10.0 /100 WBCs. The reference range was not used to interpret this result as normal/abnormal. NRBC x10^3 (test code = 2093447353) See_Comment [Automated messa ge] The system which generated this result transmitted reference range: 10*3/?L. The reference range was not used to interpret this result as normal/abnormal. GRAN MAT (NEUT) % (test code = 770-8) 49.2 % IMM GRAN % (test code = 4061953409) 0.30 % LYMPH % (test code = 736-9) 32.5 % MONO % (test code = 5905-5) 11.0 % EOS % (test code = 713-8) 5.8 % BASO % (test code = 706-2) 1.2 % GRAN MAT x10^3(ANC) (test code = 4551981393) 2.81 10*3/uL 1.88-7.09 IMM GRAN x10^3 (test code = 3648026635) 0.00-0.06 LYMPH x10^3 (test code = 731-0) 1.86 10*3/uL 1.32-3.29 MONO x10^3 (test code = 742-7) 0.63 10*3/uL 0.33-0.92 EOS x10^3 (test code = 711-2) 0.33 10*3/uL 0.03-0.39 BASO x10^3 (test code = 704-7) 0.07 10*3/uL 0.01-0.07 Lab Interpretation (test code = 58665-4) Abnormal [facility] [id number] 13:12:00* Test Item Value Reference Range Interpretation Comme nts POCT PREG (test code = 1605) negative On board controls acceptable with C Line (test code = 3574) present POCT PREG LOT # (test code = 3575) [id number] POCT PREG TEST DATE ( test code = 3576) Lab Interpretation (test cod e = 56033-9) Normal [facility] W SPECIFIC [id number] 21:00:00* Test Item Value Reference Range Interpretation Comme nts POCT U SP GRAV (test code = 3255) 1.020 mg/dl 1.005-1.025 POCT PH U (test code = 3254) + 5-8 POCT U LEUK EST (test code = 3263) + Negative - Negative POCT U NIT (test code = 3262) neg Negative - Negati ve POCT U PROT (test code = 3259) neg Negative - Negative POCT U GLU (test code = 3256) neg Negative - Negati ve POCT U KETONE (test code = 3258) neg Negative - Negative POCT U UROBILI (test code = 3260) neg 0.2-1 POCT U BILI (test code = 3261) neg Negative - Negative POCT U BLD (test code = 3257) Negative - Negati ve POCT U COLOR (test code = 3266) yellow POCT U APPEAR (test code = 3267) hazy [facility]
[2023-11-12 23:26] LABS: Absolute Eosinophils 0.3 K/uL (0-0.5); Absolute Monocytes 0.7 K/uL (0.1-1.3); Absolute Neutrophil 6.8 K/uL (1.8-8.0); Basophils % 0.4 % (0-1.3); Eosinophils % 2.8 % (0-4.4); Hematocrit 37.4 % (36.0-45.0); Hemoglobin 12.9 g/dL (12.0-15.0); Lymphocytes % 27.6 % (15.3-44.8); MCH 34.6 pg (27.0-35.0); MCHC 34.4 g/dL (32.0-36.0); MCV 100.6 fL (80-100); MPV 8.6 fL (7.6-11.3); Monocytes % 6.6 % (3.3-12.3); Neutrophils % 62.6 % (41.7-73.7); Platelets 276 thou/uL (152-406); RBC Red Blood Cell Count 3.72 M/uL (3.86-4.86); Red Cell Distribution Width 13.4 % (12.1-15.2)
[2023-11-12 23:28] LABS: Specific Gravity 1.002 (1.005-1.030)
[2023-11-12 23:31] LABS: Specific Gravity < 1.005 (1.005-1.030); Sqamous Epithelial <5 /HPF (None Seen); Urine Bacteria None Seen /HPF (<20); Urine Bilirubin NEGATIVE (Negative); Urine Blood Negative (Negative); Urine Clarity Clear (Clear); Urine Color Colorless (Yellow); Urine Crystals Unidentified Few /HPF (None Seen); Urine Culture Reflex Order NOT NEEDED; Urine Glucose NEGATIVE (Negative); Urine Ketones NEGATIVE (Negative); Urine Microscopic Reflex YN ORDER UMIC; Urine Nitrite NEGATIVE (Negative); Urine Protein NEGATIVE (Negative); Urine RBC <5 /HPF (None Seen); Urine Urobilinogen Normal (Normal); Urine WBC None Seen /HPF (<5); Urine Yeast (Budding) Trace /HPF (None Seen)
[2023-11-12 23:31] LABS: PT Prothrombin Time 11.2 SECONDS (9.5-12.5); PTT, Activated Partial Thromb 26.8 SECONDS (24.3-36.9); Protime INR 1.02
[2023-11-12 23:48] LABS: ALT/SGPT 21 U/L (13-56); AST/SGOT 11 U/L (15-37); Albumin 2.9 g/dL (3.4-5.0); Albumin/Globulin Ratio 0.9 (1.1-1.8); Alkaline Phosphatase 51 U/L (45-117); Anion Gap 9.5 mEq/L (5.0-15.0); BUN Blood Urea Nitrogen 6 mg/dL (7-18); Bicarbonate 22 mEq/L (21-32); Bilirubin Total 0.2 mg/dL (0.2-1.0); Creatine Phosphokinase 61 U/L (26-192); Globulin 3.3 g/dL (2.3-3.5); Glomerular Filtration Rate 121 ml/min (=/>90); Glucose Level 98 mg/dL (74-106); Protein, Total 6.2 g/dL (6.4-8.2); Sodium Level 144 mEq/L (136-145); Troponin High Sensitivity 3.2 pg/mL (<58.9)
[2023-11-12 23:48] LABS: Barbiturates NEGATIVE (NEGATIVE); Benzodiazepines NEGATIVE (NEGATIVE); Cocaine NEGATIVE (NEGATIVE); METHAMPHETAM NEGATIVE (NEGATIVE); Methadone NEGATIVE (NEGATIVE); Opiates NEGATIVE (NEGATIVE); Phencyclidine NEGATIVE (NEGATIVE); THC Cannibis NEGATIVE (NEGATIVE)
[2023-11-12 23:49] LABS: Bilirubin Direct < 0.2 mg/dL (0-0.2)
[2023-11-12 23:50] LABS: Potassium 2.5 mEq/L (3.5-5.1)
[2023-11-13] MEDS ORDERED: KCL 20 MEQ/100 mL IVPB 100 ML IV ONE (00:02)
[2023-11-13] MEDS ORDERED: POTASSIUM CL SA 10 MEQ TAB PO ONE (00:13)
--- NOTE | 2023-11-13 02:34 | EDPHYS ---
Physician Documentation [facility] Name: Madeline Granda Age: 33 yrs Sex: Female : 1990 Arrival Date: 11/12/2023 Time: 22:56 Bed 7 Private MD: ED Physician Lacho Murillo HPI: 11/11 23:04 This 33 yrs old Female presents to ER via Unassigned with complaints of overdose. rt 23:04 Patient presents to the ED with reported overdose. Patient was reported to consume rt alcohol tonight. Patient took about 15 Pamprin pills at about 930. The patient denies any other acute complaints at this time, symptoms are moderate in severity, no other aggravating or alleviating factors.. 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 - Infectious Disease History:: Denies. - Family history:: not pertinent. - Social history:: Smoking status: Patient reports the use of cigarette tobacco products. ROS: 23:04 Unable to obtain ROS due to patient being uncooperative, rt Exam: 23:04 Chest/axilla: Normal chest wall appearance and motion. Nontender with no deformity. rt No lesions are appreciated. Cardiovascular: Regular rate and rhythm with a normal S1 and S2. No gallops, murmurs, or rubs. Normal PMI, no JVD. No pulse deficits. Respiratory: Lungs have equal breath sounds bilaterally, clear to auscultation and percussion. No rales, rhonchi or wheezes noted. No increased work of breathing, no retractions or nasal flaring. Abdomen/GI: Soft, non-tender, with normal bowel sounds. No distension or tympany. No guarding or rebound. No evidence of tenderness throughout. Skin: Warm, dry with normal turgor. Normal color with no rashes, no lesions, and no evidence of cellulitis. MS/ Extremity: Pulses equal, no cyanosis. Neurovascular intact. Full, normal range of motion. Neuro: Awake and alert, GCS 15, oriented to person, place, time, and situation. Cranial nerves II-XII grossly intact. Motor strength 5/5 in all extremities. Sensory grossly intact. Cerebellar exam normal. Normal gait. 23:04 Constitutional: The patient appears Somnolent, no acute distress 23:04 ECG was reviewed by the Attending Physician. Vital Signs: 22:57 BP 134 / 92; Pulse 86; Resp 17; Temp 98.4(O); Pulse Ox 100% on R/A; Weight 70.31 kg; lc8 Height 5 ft. 6 in. ; Pain 3/10; 11/12 00:30 BP 107 / 73; Pulse 85; Resp 17; Pulse Ox 99% on R/A; lc8 02:36 BP 108 / 76; Pulse 81; Resp 18; Temp 98.1; Pulse Ox 98% on R/A; Pain 0/10; bm8 11/11 22:57 Body Mass Index 25.02 (70.31 kg, 167.64 cm) lc8 11/11 22:57 Pain Scale: Adult lc8 02:36 Pain Scale: Adult bm8 Carie Coma Score: 02:36 Eye Response: spontaneous(4). Motor Response: obeys commands(6). Verbal Response: bm8 oriented(5). Total: 15. MDM: 11/11 22:58 Patient medically screened. rt 11/12 02:34 Differential Diagnosis Overdose, electrolyte disturbance. Data reviewed: vital signs, rt nurses notes, lab test result(s), EKG. Consideration of Admission/Observation Escalation of care including admission/observation considered. Patient with decreasing Tylenol level, never hitting the toxic range. Patient initial hypokalemia, likely due to the diuretic component of the medication, improving with potassium supplementation. Patient denies suicidality, does not seem to be gravely disabled, does not require involuntary hospitalization. Stable for outpatient care, return precautions discussed.. I considered the following discharge prescriptions or medication management in the emergency department Medications were administered in the Emergency Department. See MAR. Counseling: I had a detailed discussion with the patient and/or guardian regarding the historical points, exam findings, and any diagnostic results supporting the discharge/admit diagnosis, lab results, the need for outpatient follow up, to return to the emergency department if symptoms worsen or persist or if there are any questions or concerns that arise at home. Response to treatment: the patient's symptoms have markedly improved after treatment. 11/11 22:58 Order name: Acetaminophen; Complete Time: 23:52 rt 11/11 22:58 Order name: Basic Metabolic Panel; Complete Time: 23:52 rt 11/11 22:58 Order name: CBC with Diff; Complete Time: 23:52 rt 11/11 22:58 Order name: ETOH Level; Complete Time: 23:52 rt 11/11 22:58 Order name: Hepatic Function; Complete Time: 23:52 rt 11/11 22:58 Order name: PT-INR; Complete Time: 23:52 rt 11/11 22:58 Order name: Test, Urine; Complete Time: 23:52 rt 11/11 22:58 Order name: Ptt, Activated; Complete Time: 23:52 rt 11/11 22:58 Order name: Salicylate; Complete Time: 23:52 rt 11/11 22:58 Order name: Urinalysis w/ reflexes; Complete Time: 23:52 rt 11/11 22:58 Order name: Urine Drug Screen; Complete Time: 23:52 rt 11/11 22:58 Order name: CPK; Complete Time: 23:52 rt 11/11 23:27 Order name: Troponin High Sensitivity rt 11/11 23:30 Order name: Troponin High Sensitivity; Complete Time: 23:52 EDMS 11/11 23:57 Order name: Acetaminophen: draw at 0130; Complete Time: 02:31 rt 11/11 23:57 Order name: BMP: draw at 0130; Complete Time: 02:31 rt 11/11 22:58 Order name: EKG; Complete Time: 22:59 rt 11/11 22:58 Order name: EKG - Nurse/Tech; Complete Time: 23:18 rt 11/11 22:58 Order name: IV Saline Lock; Complete Time: 23:18 rt 11/11 22:58 Order name: Labs collected and sent; Complete Time: 23:18 rt 11/11 22:58 Order name: Suicide Screening ([place]); Complete Time: 00:41 rt EC/14 23:04 Rate is 99 beats/min. Rhythm is regular, Normal Sinus Rhythm with No ectopy. QRS Vance rt is Normal. [place] interval is normal. QRS interval is normal. QT interval is prolonged at 490 msec. No Q waves. T waves are Normal. No ST changes noted. Interpreted by me. Administered Medications: 11/12 00:09 Drug: Potassium Chloride IV 20 mEq IV at calculated rate once; administer over 1-2 lc8 hours Route: IV; Rate: calculated rate; Site: left antecubital; 02:40 Follow up: Response: No adverse reaction; IV Status: Completed infusion; IV Intake: bm8 100ml 00:19 Drug: Potassium Chloride PO Liquid 40 mEq PO once Route: PO; lc8 02:41 Follow up: Response: No adverse reaction bm8 Disposition Summary: 11/13/23 02:33 Discharge Ordered Notes: Location: Home rt Problem: new rt Symptoms: have improved rt Condition: Stable rt Diagnosis - Accidental overdose of analgesic rt - Hypokalemia rt Followup: rt - With: Private Physician - When: 2 - 3 days - Reason: Discharge Instructions: - Discharge Summary Sheet rt - Acetaminophen Overdose rt - Hypokalemia rt Forms: - Medication Reconciliation Form rt - Antibiotic Education rt - Prescription Opioid Use rt - Patient Portal Instructions rt - Leadership Thank You Letter rt Signatures: Dispatcher [employer] EDLacho Patten MD MD rt Adams Ford RN RN lc8 Guicho Mon RN bm8 Corrections: (The following items were deleted from the chart) 11/11 22:59 22:59 ACETAMINOPHEN+C.LAB.BRZ ordered. EDMS EDMS 22:59 22:59 BASIC METABOLIC PANEL+C.LAB.BRZ ordered. EDMS EDMS 22:59 22:59 CBC+H.LAB.BRZ ordered. EDMS EDMS 22:59 22:59 ETHANOL+C.LAB.BRZ ordered. EDMS EDMS 22:59 22:59 HEPATIC FUNCTION+C.LAB.BRZ ordered. EDMS EDMS 22:59 22:59 PROTIME (+INR)+COAG.LAB.BRZ ordered. EDMS EDMS 22:59 22:59 Test, Urine+UC.LAB.BRZ ordered. EDMS EDMS 22:59 22:59 PTT, ACTIVATED+COAG.LAB.BRZ ordered. EDMS EDMS 22:59 22:59 SALICYLATE+C.LAB.BRZ ordered. EDMS EDMS 22:59 22:59 Urinalysis+U.LAB.BRZ ordered. EDMS EDMS 22:59 22:59 URINE DRUG SCREEN+UC.LAB.BRZ ordered. EDMS EDMS 22:59 22:59 CREATINE PHOSPHOKINASE+C.LAB.BRZ ordered. EDMS EDMS
--- NOTE | 2023-11-13 02:34 | ER ---
Nurse's Notes [facility] Name: Madeline Granda Age: 33 yrs Sex: Female : 1990 Arrival Date: 11/12/2023 Time: 22:56 Bed 7 Private MD: Diagnosis: Accidental overdose of analgesic;Hypokalemia Presentation: 11/11 22:57 Chief complaint: Patient states: she took 15 pamprin \\T\\ had two alcoholic beverages at lc8 approx 2130. pt reports chest pain \\T\\ dizziness. denies suicidal or homicidal ideation. AAOX4. 22:57 Coronavirus screen: Client denies travel out of the [place] in the last 14 days. Ebola lc8 Screen: Patient negative for fever greater than or equal to 101.5 degrees Fahrenheit, and additional compatible Ebola Virus Disease symptoms Patient denies exposure to infectious person. Patient denies travel to an Ebola-affected area in the 21 days before illness onset. No symptoms or risks identified at this time. Initial Sepsis Screen: Does the patient meet any 2 criteria? No. Patient's initial sepsis screen is negative. Does the patient have a suspected source of infection? No. Patient's initial sepsis screen is negative. Risk Assessment: Do you want to hurt yourself or someone else? Patient reports no desire to harm self or others. Onset of symptoms was November 12, 2023 at 21:30. 22:57 Method Of Arrival: EMS: [facility] 22:57 Acuity: JONG 3 8 23:37 Care prior to arrival: IV initiated. 20 GA, in the left antecubital area. 8 Triage Assessment: 22:57 General: Appears in no apparent distress. well groomed, well nourished, Behavior is lc8 calm, cooperative, quiet. 22:57 Pain: Complains of pain in chest Pain does not radiate. Pain currently is 3 out of 10 lc8 on a pain scale. EENT: No deficits noted. Neuro: Level of Consciousness is awake, alert, obeys commands, Oriented to person, place, time, situation. Cardiovascular: Capillary refill < 3 seconds Patient's skin is warm and dry. Respiratory: Airway is patent Respiratory effort is even, unlabored, Respiratory pattern is regular, symmetrical. GI: No deficits noted. : No deficits noted. Derm: No deficits noted. Skin is intact, is healthy with good turgor. Musculoskeletal: No deficits noted. 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 - Infectious Disease History:: Denies. - Family history:: not pertinent. - Social history:: Smoking status: Patient reports the use of cigarette tobacco products. Screenin:36 [facility] ED Fall Risk Assessment (Adult) History of falling in the last 3 months, lc8 including since admission No falls in past 3 months (0 pts) Confusion or Disorientation No (0 pts) Intoxicated or Sedated No (0 pts) Impaired Gait No (0 pts) Mobility Assist Device Used No (0 pt) Altered Elimination No (0 pt) Score/Fall Risk Level 0 - 2 = Low Risk. Abuse screen: Denies threats or abuse. Denies injuries from another. Nutritional screening: No deficits noted. Tuberculosis screening: No symptoms or risk factors identified. Assessment: 23:19 Reassessment: spoke with BRITTANIE with poison control at this time. case #:[id number]. lc8 suggestions include supportive \\T\\ symptomatic care. acetaminophen \\T\\ salicylate to be repeated 4 hours post ingestion (0130).. 23:37 Reassessment: see triage for assessment. lc8 23:51 Reassessment: potassium 2.5; provider made aware.. lc8 11/12 00:30 Reassessment: No changes from previously documented assessment. Patient and/or family lc8 updated on plan of care and expected duration. Pain level reassessed. 02:00 Reassessment: Patient appears in no apparent distress at this time. No changes from lc8 previously documented assessment. 02:36 General: Appears in no apparent distress. comfortable, Behavior is calm, cooperative, bm8 appropriate for age. Pain: Denies pain. Neuro: No deficits noted. Level of Consciousness is awake, alert, obeys commands, Oriented to person, place, time, situation, Appropriate for age Health Education Aide are equal bilaterally Moves all extremities. Full function Gait is steady, Speech is normal, Facial symmetry appears normal. Cardiovascular: Denies chest pain, lightheadedness, shortness of breath, Capillary refill < 3 seconds Patient's skin is warm and dry. Respiratory: Airway is patent Trachea midline Respiratory effort is even, unlabored, Respiratory pattern is regular, symmetrical, Denies cough, shortness of breath labored breathing. GI: No deficits noted. No signs and/or symptoms were reported involving the gastrointestinal system. Patient currently denies nausea, pain. : No deficits noted. No signs and/or symptoms were reported regarding the genitourinary system. Denies pain. EENT: No signs and/or symptoms were reported regarding the EENT system. Derm: No signs and/or symptoms reported regarding the dermatologic system. Musculoskeletal: No signs and/or symptoms reported regarding the musculoskeletal system. Overdose: 11/11 23:30 Patient took 15 pamprin; denies SI. 8 23:30 Overdose occurred 1-2 hours ago. 8 11/12 00:11 [place] Suicide Severity Screening: "In the past month, have you wished you were lc8 or wished you could go to sleep and not wake up?" Patient responds "no." "In the past month, have you actually had any thoughts of killing yourself?" Patient responds "no." "In your lifetime, have you ever done anything, started to do anything, or prepared to do anything to end your life?" Patient responds "no.". 00:11 [place] Suicide Severity Screening: "In the past month, have you wished you were lc8 or wished you could go to sleep and not wake up?" Patient responds "no." "In the past month, have you actually had any thoughts of killing yourself?" Patient responds "yes." Based off client's responses, additional C-SSRS screening questions required. Vital Signs: 11/11 22:57 BP 134 / 92; Pulse 86; Resp 17; Temp 98.4(O); Pulse Ox 100% on R/A; Weight 70.31 kg; lc8 Height 5 ft. 6 in. ; Pain 3/10; 11/12 00:30 BP 107 / 73; Pulse 85; Resp 17; Pulse Ox 99% on R/A; lc8 02:36 BP 108 / 76; Pulse 81; Resp 18; Temp 98.1; Pulse Ox 98% on R/A; Pain 0/10; bm8 11/11 22:57 Body Mass Index 25.02 (70.31 kg, 167.64 cm) lc8 11/11 22:57 Pain Scale: Adult lc8 02:36 Pain Scale: Adult bm8 Carie Coma Score: 02:36 Eye Response: spontaneous(4). Motor Response: obeys commands(6). Verbal Response: bm8 oriented(5). Total: 15. ED Course: 11/11 22:57 Patient arrived in ED. rg5 22:58 Lacho Murillo MD is Attending Physician. rt 23:16 Adams Ford, DC is Primary Nurse. lc8 23:19 Urine Drug Screen Sent. lc8 23:19 Urinalysis w/ reflexes Sent. lc8 23:19 Acetaminophen Sent. lc8 23:21 Basic Metabolic Panel Sent. lc8 23:21 CBC with Diff Sent. lc8 23:21 ETOH Level Sent. lc8 23:27 Urine Drug Screen Sent. lc8 23:27 Urinalysis w/ reflexes Sent. lc8 23:27 Salicylate Sent. lc8 23:27 Test, Urine Sent. lc8 23:27 PT-INR Sent. lc8 23:27 ETOH Level Sent. lc8 23:27 Hepatic Function Sent. lc8 23:34 Triage completed. lc8 23:36 Arm band placed on left wrist. EKG completed in triage. Results shown to MD. lc8 23:45 Patient has correct armband on for positive identification. Bed in low position. Call lc8 light in reach. Side rails up X 1. Provided Education on: course of ed stay. 11/12 01:36 BMP: draw at 0130 Sent. lc8 01:36 Acetaminophen: draw at 0130 Sent. lc8 02:36 No provider procedures requiring assistance completed. IV discontinued, intact, bm8 bleeding controlled, No redness/swelling at site. Pressure dressing applied. Administered Medications: 00:09 Drug: Potassium Chloride IV 20 mEq IV at calculated rate once; administer over 1-2 lc8 hours Route: IV; Rate: calculated rate; Site: left antecubital; 02:40 Follow up: Response: No adverse reaction; IV Status: Completed infusion; IV Intake: bm8 100ml 00:19 Drug: Potassium Chloride PO Liquid 40 mEq PO once Route: PO; lc8 02:41 Follow up: Response: No adverse reaction bm8 Medication: 11/11 23:47 VIS not applicable for this client. lc8 Intake: 11/12 02:40 IV: 100ml; Total: 100ml. bm8 Outcome: 02:33 Discharge ordered by MD. rt 02:36 Discharged to home ambulatory, bm8 02:36 Condition: stable 02:36 Discharge instructions given to patient, family, Instructed on discharge instructions, follow up and referral plans. medication usage, safety practices, Demonstrated understanding of instructions, follow-up care, medications, 02:40 Patient left the ED. bm8 Signatures: Lacho Murillo MD MD rt Guicho Mon RN RN bm8 Julio Cherry, DC RN rg5 Adams Ford RN RN lc8 Corrections: (The following items were deleted from the chart) 11/11 23:49 23:30 [place] Suicide Severity Screening: "In the past month, have you wished you were lc8 or wished you could go to sleep and not wake up?" Patient responds "no." Patient responds "yes." Based off client's responses, additional C-SSRS screening questions required. "In the past month, have you actually had any thoughts of killing yourself?" Patient responds "no." "In your lifetime, have you ever done anything, started to do anything, or prepared to do anything to end your life?" Patient responds "no." lc8 23:49 23:30 [place] Suicide Severity Screening: "In the past month, have you actually had lc8 any thoughts of killing yourself?" Patient responds "no." lc8 23:49 23:45 [place] Suicide Severity Screening: "In the past month, have you actually had lc8 any thoughts of killing yourself?" Patient responds "no." lc8 49 23:48 [place] Suicide Severity Screening: "In the past month, have you wished you were lc8 or wished you could go to sleep and not wake up?" Patient responds "no." "In the past month, have you actually had any thoughts of killing yourself?" Patient responds "no." "In your lifetime, have you ever done anything, started to do anything, or prepared to do anything to end your life?" Patient responds "no." lc8 11/12 02:40 02:39 [place] Suicide Severity Screening: "In the past month, have you wished you were bm8 or wished you could go to sleep and not wake up?" Patient responds "yes." bm8
[2023-11-13 03:14] VITALS: BP 108/76; TEMP 98.1; O2SAT 98
--- NOTE | 2023-11-15 14:59 | EKG ---
Test Date: 2023-11-12 Test Time: 23:01:39 Back End Developer: MEASUREMENT RESULTS: Intervals: Rate: 99 CO: 138 QRSD: 78 QT: 382 QTc: 490 Spring: P: 64 CO: 138 QRS: 64 T: 49 INTERPRETIVE STATEMENTS: Normal sinus rhythm Prolonged QT Abnormal ECG Compared to ECG 06/11/2015 20:06:37 Prolonged QT interval now present Electronically Signed On 11-15-23 14:53:09 CDT by Andrade Alberto
== END 2023-11-13 02:40 | disposition home or self-care (01) ==
LOC: ER 22:56
DX: T39.91XA Poisoning by unspecified nonopioid analgesic, antipyretic and antirheumatic, accidental (unintentional), initial encounter (principal); E87.6 Hypokalemia
CPT/HCPCS: 96365; 93005; 85025; 81001; 80048 ×2; 36415; 82550; 81025; 85610; 80076; 85730; 84484; 80307; 99285; 96366; 80143 ×2; 80179; 82077; J3480